=== PATIENT | female | born 1955 | race Caucasian/White ===

== ENCOUNTER 2018-11-01 14:12 | Emergency (ER) | payer OTHER ==
[~2018-11-01] VITALS: Ht 152.4 cm; Wt 101.4 kg
[2018-11-01] MEDS ORDERED: LEVOTHYROXINE125 MCG PO (14:23)
[2018-11-01] MEDS ORDERED: B-121000 MC2 PO (14:24)
[2018-11-01 15:00] LABS: ABSOLUTE EOSINOPHILS 0.1 thou/uL (0.0-0.7); ABSOLUTE LYMPHOCYTES 1.7 thou/uL (0.8-5.3); ABSOLUTE NEUTROPHILS 12.7 thou/uL (1.6-8.1); BASOPHILS 0.3 %; EOSINOPHILS 0.7 %; HEMATOCRIT 45.5 % (37.0-47.0); HEMOGLOBIN 15.2 gm/dL (12.0-15.0); MCH 33.1 pg (26.0-34.0); MCHC 33.5 g/dL (28.0-37.0); MCV 98.8 fL (80.0-100.0); MONOCYTES 6.3 %; MPV 8.2 fl. (7.2-11.1); NUCLEATED RBCS 0 /100WBC; PLATELET COUNT* 299 thou/uL (150-400); POLYS 81.7 %; WBC 15.6 thou/uL (4.0-11.0)
[2018-11-01 15:10] LABS: ANION GAP 12 mmol/L (7-16); BUN 13 mg/dL (7-18); CHLORIDE 101 mmol/L (98-107); CO2 23 mmol/L (21-32); CREATININE 1.3 mg/dL (0.6-1.3); GLUCOSE 178 mg/dL (70-99); POTASSIUM 3.2 mmol/L (3.5-5.1); SODIUM 136 mmol/L (136-145)
[2018-11-01 15:24] LABS: ALBUMIN 3.5 g/dL (3.4-5.0); ALKALINE PHOSPHATASE 61 U/L (46-116); SGOT 18 U/L (15-37); SGPT 19 U/L (30-65); TOTAL BILIRUBIN 0.7 mg/dL (<0.1-1.0); TOTAL PROTEIN 6.9 g/dL (6.4-8.2); TROPONIN-I LEVEL <0.06 ng/mL (<0.06)
[2018-11-01] MEDS ORDERED: PREDNISONE50 MG PO (15:35)
[2018-11-01] MEDS ORDERED: DIPHENHIST50 MG PO (15:35)
[2018-11-01] MEDS ORDERED: ZPAK PO (15:35)
[2018-11-01 15:50] VITALS: BP 143/73
--- NOTE | 2018-11-01 17:23 | EKG ---
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 PERDOMO : 1955 Requested By: Boris Chandra Order Number: [id number] MD: Scottie Gaspar Measurements Intervals [place] Rate: 100 P: 55 MN: 136 QRS: 14 QRSD: 97 T: 11 QT: 377 QTc: 487 Interpretive Statements Sinus tachycardia Borderline prolonged QT interval No previous ECG available for comparison Electronically Signed On 11-01-2018 17:23:37 [employer] by Scottie Gaspar [email or web address] <ELECTRONICALLY SIGNED> By: Scottie Gaspar MD, [facility] 11/01/18 1723 1435 1435 Scottie Gaspar MD, FACC /EPI
== END 2018-11-01 15:50 | disposition home or self-care (01) ==
LOC: M.ERS 14:12
PROVIDERS: Emergency Medicine Emergency Medical Services
DX: L50.9 Urticaria, unspecified (principal); T36.8X5A Adverse effect of other systemic antibiotics, initial encounter; R11.2 Nausea with vomiting, unspecified; Z88.8 Allergy status to other drugs, medicaments and biological substances; Z91.040 Latex allergy status; Y92.89 Other specified places as the place of occurrence of the external cause